=== PATIENT | female | born 1930 | race Caucasian/White ===

== ENCOUNTER 2020-04-08 15:44 | Inpatient (IN) | payer MEDICARE ==
[2020-04-08] MEDS ORDERED: Ventolin HFA Inhaler 60 PUFF INHALER INH PRN (17:56)
[2020-04-08] MEDS ORDERED: Diclofenac 1% 100 GM GEL TP PRN (17:57)
[2020-04-08] MEDS ORDERED: Bisacodyl 10 MG SUPP PR PRN (17:57)
[2020-04-08] MEDS ORDERED: Sodium Chloride 0.65% Nasal 44 ML BOT EA NARE PRN (17:59)
[2020-04-08] MEDS ORDERED: Polyethylene Glycol 3350 17 GM Packet PO PRN (17:59)
[2020-04-08] MEDS ORDERED: Simethicone Chewable 80 MG TAB PO PRN (17:59)
--- NOTE | 2020-04-08 21:12 | RAD ---
PORTABLE CHEST: 04/08/20 HISTORY: CHF. Pneumonia. Comparison 04/07/20. FINDINGS: Cardiomegaly with vascular congestion. There are bilateral interstitial and hazy alveolar opacities w hich could represent edema and superimposed inflammatory infiltrate. IMPRESSION: No significant interval. POS: AGW
[2020-04-09 05:42] LABS: #Basophils 0.1 thou/uL (0.0-0.2); #Eosinphils 0.6 thou/uL (0.0-0.7); #Lymphocytes 1.5 thou/uL (1.20-3.40); #Monocytes 0.6 thou/uL (0.11-0.59); #Neutrophils 5.3 thou/uL (1.40-6.50); %Basophils 0.8 % (0.0-1.0); %Lymphocytes 18.5 % (21.0-51.0); %Monocytes 7.2 % (0.0-10.0); %Neutrophils 66.6 % (42.0-75.0); Hemoglobin 9.6 g/dL (12.0-16.0); Mean Corpuscular HGB CONC 31.1 g/dL (32.0-36.0); Mean Corpuscular Hemoglobin 29.5 pg (27.0-31.0); Mean Corpuscular Volume 94.7 fL (78.0-98.0); Mean Platelet Volume 6.9 fL (7.4-10.4); Platelet Count 231 thou/uL (130-400); RBC Distribution Width 16.2 % (11.5-14.5); Red Blood Cell (RBC) Count 3.27 mill/uL (4.20-5.40)
[2020-04-09 05:59] LABS: ALT (SGPT) 21 U/L (8-55); AST (SGOT) 23 U/L (5-34); Albumin 3.1 g/dL (3.4-4.8); Alkaline Phosphatase 67 U/L (40-110); Anion Gap 14 mmol/L (10-20); BUN (Urea Nitrogen) 43 mg/dL (9.8-20.1); Calc. Creatinine Clearance 74 mL/min (70-130); Calcium 8.1 mg/dL (7.8-10.44); Carbon Dioxide 28 mmol/L (23-31); Chloride 105 mmol/L (98-107); Globulin 2.4 g/dL (2.4-3.5); Glucose 95 mg/dL (83-110); Potassium 4.8 mmol/L (3.5-5.1); Protein, Total 5.5 g/dL (5.8-8.1); Sodium 142 mmol/L (136-145)
[2020-04-09] MEDS: Potassium Chloride 10 MEQ TAB PO SCH (09:09)
[2020-04-09] MEDS: Fish Oil 1,000 MG CAP PO SCH (09:10)
[2020-04-09] MEDS: Azithromycin 250 MG TAB PO SCH (09:10)
[2020-04-09] MEDS: Calcium Carbonate 500 MG TAB PO SCH (09:10)
[2020-04-09] MEDS: Cholecalciferol 1,000 UNITS (25 MCG) TAB PO SCH (09:10)
[2020-04-09] MEDS: predniSONE 5 MG TAB PO SCH (09:10)
[2020-04-09] MEDS: Magnesium Oxide 400 MG TAB PO SCH (09:10)
[2020-04-09] MEDS: Amlodipine 5 MG TAB PO SCH (09:10)
[2020-04-09] MEDS: Lactinex Tablet PO SCH (09:11)
[2020-04-09] MEDS: Rivaroxaban 10 MG TAB PO SCH (18:09)
--- NOTE | 2020-04-10 06:32 | HP ---
HISTORY OF PRESENT ILLNESS: The patient is a very pleasant 89-year-old white female, who has been at [facility] for the past several weeks because of inability to maintain ADLs associated with lymphedema, arthritis, atrial fibrillation, and cellulitis of her legs and buttocks. She improved with PT/OT, and had lymphedema pump placed, but then developed increased pulmonary infiltrates and hypoxemia, felt initially to be due to pneumonia, treated with antibiotics, but then felt to possibly be exacerbation of diastolic heart failure secondary to lymphedema pumps. She did develop a reaction to furosemide, which she has taken in the past with no reaction, but she does have a history of severe allergy to sulfa. This was discontinued and she was treated with IV steroids with resolution of the rash, however, she continued to have infiltrates and was diuresed with ethacrynic acid, another loop diuretic, not related to sulfa drugs, and began to improve her oxygenation, however, she still remain with infiltrates, and therefore, was started on treatment with oral antibiotics for possible underlying pneumonia also. She was unable, however, to be weaned off her oxygen, and was therefore, transferred to the [facility] to continue PT/OT, continue gentle diuresis on oral antibiotics, and wean off her oxygen. PAST MEDICAL HISTORY: Remarkable also for hypertension, which has been well controlled, paroxysmal atrial fibrillation as mentioned above, diastolic heart failure, severe osteoarthritis, chronic asymptomatic , and the severe lymphedema. PAST SURGICAL HISTORY: Positive for hip replacement, cholecystectomy, appendectomy. MEDICATIONS: On transfer included: 1. Azithromycin 500 mg daily for 2 days. 2. Levaquin 750 mg every 48 hours. 3. Lisinopril 40 mg daily. 4. Potassium citrate 10 mEq daily. 5. Rivaroxaban 20 mg daily. 6. Lactobacillus one tablet twice daily. 7. Felodipine 10 mg daily. 8. Ethacrynic acid 50 mg daily as needed. SOCIAL HISTORY: She was living alone, maintaining ADLs. She was a nonsmoker and nondrinker. REVIEW OF SYSTEMS: HEENT: She denies any headaches, dizziness, change in vision, hearing, hoarseness, or dysphagia. PULMONARY: She denies any cough, sputum production, previous history of pneumonia, chest pain. CARDIOVASCULAR: She does have dyspnea on exertion, but improving over the last several days. She has no chest pain at rest, although this has present in the past. She has stable 1 to 2 pillow orthopnea. She does have chronic lymphedema, which was treated with lymphedema pumps, which has been discontinued now and only treated with Lewis wraps. GASTROINTESTINAL: She denies nausea, vomiting, diarrhea, constipation, or abdominal pain. GENITOURINARY: Denies dysuria, hematuria, or nocturia. MUSCULOSKELETAL: She has pain in both legs and knees, but is improving with therapy. She has chronic massive lymphedema with no erythema or warmth at this time. NEUROLOGIC: She denies localized numbness or tingling in arms or extremities. PHYSICAL EXAMINATION: VITAL SIGNS: Her blood pressure today is 127/60, O2 saturation is 93% on 3 L, respirations 18, pulse 58, afebrile. HEENT: Pupils are equal, round, and reactive to light and accommodation. Sclerae anicteric. Conjunctivae pale. There is a fading erythematous rash on her face. NECK: Supple. There are no nodes or masses. JVP is not elevated. LUNGS: Revealing decreased breath sounds in the bases. CARDIAC: Shows regular rhythm. No gallops or murmurs. ABDOMEN: Soft and nontender. Fading rash. SKIN AND EXTREMITIES: Shows massive lymphedema with no erythema or warmth. Minimal tenderness. There is a fading diffuse rash. NEUROLOGICAL: Shows no focal findings. LABORATORY DATA: Laboratories not available as of yet. IMAGING DATA: Chest x-ray shows improving but persistent bilateral infiltrates and interstitial edema. ASSESSMENT: 1. Chronic lymphedema and diastolic heart failure with recent exacerbation, slowly improving with ethacrynic acid. 2. Severe allergic reaction to furosemide, resolving with oral steroids. 3. Severe deconditioning and osteoarthritis, improving with PT/OT. 4. Paroxysmal atrial fibrillation with rate control and anticoagulation. 5. Hypertension, controlled to goal. PLAN: 1. Continue PT, OT. 2. Finish course of Levaquin, azithromycin for possible superimposed bacterial pneumonia. 3. Restart ethacrynic acid 50 mg daily as needed for edema and monitor pulmonary congestion, oxygen requirements. 4. Continue prednisone for the next several days to completely eradicate the allergic reaction. 5. Continue to monitor vital signs with therapy. Job ID: [id number]
--- NOTE | 2020-04-10 06:36 | PRG ---
DATE OF SERVICE: 04/09/2020 SUBJECTIVE: The patient feels better, sitting up in the chair. No dyspnea at rest. Has been working with therapy, walked out in the [place]. She is still requiring some oxygen. She is having no cough or wheezing. OBJECTIVE: VITAL SIGNS: Show temperature is 96.3, pulse 56, respirations 20, O2 sat is 97% on 3 L, and blood pressure is 145/64. LUNGS: Show decreased breath sounds in the bases with a few diffuse crackles. CARDIAC: Examination shows slow regular rhythm. ABDOMEN: Obese, nontender. SKIN/EXTREMITIES: Show faded rash and significant lymphedema with no erythema and significant arthritis, crepitus of the knee. LABORATORY DATA: Show sodium 142, potassium 4.8, chloride 105, bicarb 28, creatinine 1.02, glucose 95, calcium 8.1, total bilirubin . White count 8000, hematocrit 30. ASSESSMENT: 1. Persistent infiltrates and hypoxemia in the lungs, possibly due to atypical diastolic heart failure with pulmonary congestion versus pneumonia. She is finishing a course of Levaquin and azithromycin, has no evidence of fever, procalcitonin elevation. 2. Probable diastolic heart failure with decompensation with elevated BNP and x-ray findings consistent with atypical pulmonary edema responding to oral ethacrynic acid. We will continue this dose and monitor oxygen saturation and pulmonary findings and BNP. 3. Severe osteoarthritis, but not limiting therapy. She is working with therapy. 4. Lymphedema, stable with no evidence of cellulitis. 5. Paroxysmal atrial fibrillation with rate control and anticoagulation with EKG showing junctional rhythm at this time. We will repeat tomorrow. Monitor closely. Job ID: [id number]
[2020-04-10] MEDS: Cholecalciferol 1,000 UNITS (25 MCG) TAB PO SCH (09:00)
[2020-04-10] MEDS: Azithromycin 250 MG TAB PO SCH (09:00)
[2020-04-10] MEDS: Potassium Chloride 10 MEQ TAB PO SCH (09:01)
[2020-04-10] MEDS: Fish Oil 1,000 MG CAP PO SCH (09:01)
[2020-04-10] MEDS: Amlodipine 5 MG TAB PO SCH (09:01)
[2020-04-10] MEDS: Calcium Carbonate 500 MG TAB PO SCH (09:01)
[2020-04-10] MEDS: predniSONE 5 MG TAB PO SCH (09:01)
[2020-04-10] MEDS: Magnesium Oxide 400 MG TAB PO SCH (09:01)
[2020-04-10] MEDS: Lactinex Tablet PO SCH (09:02)
[2020-04-10] MEDS: Rivaroxaban 10 MG TAB PO SCH (16:17)
[2020-04-11 05:50] LABS: Anion Gap 16 mmol/L (10-20); BUN (Urea Nitrogen) 52 mg/dL (9.8-20.1); Calc. Creatinine Clearance 60 mL/min (70-130); Calcium 8.2 mg/dL (7.8-10.44); Carbon Dioxide 26 mmol/L (23-31); Chloride 104 mmol/L (98-107); Glucose 89 mg/dL (83-110); Potassium 4.5 mmol/L (3.5-5.1); Sodium 141 mmol/L (136-145)
[2020-04-11] MEDS: predniSONE 5 MG TAB PO SCH (09:12)
[2020-04-11] MEDS: Magnesium Oxide 400 MG TAB PO SCH (09:12)
[2020-04-11] MEDS: Cholecalciferol 1,000 UNITS (25 MCG) TAB PO SCH (09:12)
[2020-04-11] MEDS: Azithromycin 250 MG TAB PO SCH (09:12)
[2020-04-11] MEDS: Amlodipine 5 MG TAB PO SCH ×2 (09:12→09:16)
[2020-04-11] MEDS: Calcium Carbonate 500 MG TAB PO SCH (09:12)
[2020-04-11] MEDS: Fish Oil 1,000 MG CAP PO SCH (09:12)
[2020-04-11] MEDS: Potassium Chloride 10 MEQ TAB PO SCH (09:12)
[2020-04-11] MEDS: Lactinex Tablet PO SCH (09:14)
--- NOTE | 2020-04-11 11:28 | PRG ---
DATE OF SERVICE: 04/10/2020 SUBJECTIVE: The patient is sitting up in the chair, eating supper. She states she has had a good day, worked with therapy today, walked around the nurses station. She is still requiring oxygen. She is having no further rash or itching. She did finally get her diuretic later this afternoon. OBJECTIVE: Shows: VITAL SIGNS: Blood pressure 116/55, temperature is 96, pulse 54, respirations 18, and O2 sats 93% on room air. LUNGS: Show only a few crackles in the bases. CARDIAC: Showed regular rhythm. ABDOMEN: Soft, nontender. SKIN/EXTREMITIES: Showed diffuse lymphedema. Occupational Therapy and Wound Care seen the patient and recommend lymphedema pumps to start next week as they feel wrapping would not benefit her. ASSESSMENT: 1. Chronic lymphedema, stable. 2. Resolved cellulitis. 3. Paroxysmal atrial fibrillation, now with junctional rhythm and we will repeat EKG, but need to be concern for possible tachycardia-bradycardia syndrome. 4. hypoxemia and diffuse infiltrates on chest x-ray with no evidence of ongoing infection, being treated, however, with azithromycin and Levaquin in the next several days. 5. Sulfa and furosemide allergy, resolving, and we will discontinue prednisone. 6. Decompensated congestive heart failure, improved greatly with improving oxygenation and we will check BNP. PLAN: 1. Check BNP in the a.m. 2. Discontinue prednisone in the a.m. 3. Repeat ethacrynic acid today and tomorrow and then monitor. 4. Continue to attempt to wean off oxygen. 5. Repeat EKG tomorrow to monitor for tachycardia-bradycardia syndrome. 6. Discontinue antibiotics tomorrow. Job ID: [id number]
--- NOTE | 2020-04-11 11:32 | PRG ---
DATE OF SERVICE: 04/11/2020 SUBJECTIVE: The patient feels well, walking to the bathroom with no difficulty, shortness of breath, has been working with therapy. She is having no cough, rash, or weakness. OBJECTIVE: VITAL SIGNS: Temperature 96, pulse 61, respirations 18, O2 saturations 96% on 3 L, blood pressure 110/54. LUNGS: Clear with only few crackles. CARDIAC: Regular, slow rhythm. ABDOMEN: Soft and nontender. SKIN/EXTREMITIES: Stable lymphedema with no cellulitis and no rash. ASSESSMENT: 1. Resolved sulfa and furosemide allergy and we will discontinue prednisone. 2. Improving oxygenation and pulmonary infiltrates and we will discontinue ethacrynic acid and repeat chest x-ray tomorrow. 3. Junctional rhythm in a patient with paroxysmal atrial fibrillation. We will discontinue Levaquin and erythromycin and repeat EKG. 4. Hypokalemia resolved with potassium supplementation and we will discontinue potassium as diuretic has been discontinued also. Job ID: [id number]
[2020-04-11] MEDS: Rivaroxaban 10 MG TAB PO SCH (17:40)
[2020-04-12 05:37] LABS: Sodium 139 mmol/L (136-145)
[2020-04-12 05:39] LABS: Anion Gap 15 mmol/L (10-20); BUN (Urea Nitrogen) 58 mg/dL (9.8-20.1); Calc. Creatinine Clearance 52 mL/min (70-130); Carbon Dioxide 24 mmol/L (23-31); Chloride 105 mmol/L (98-107); Glucose 97 mg/dL (83-110); Potassium 4.6 mmol/L (3.5-5.1)
[2020-04-12] MEDS: Lactinex Tablet PO SCH (09:06)
[2020-04-12] MEDS: Magnesium Oxide 400 MG TAB PO SCH (09:07)
[2020-04-12] MEDS: Amlodipine 5 MG TAB PO SCH (09:07)
[2020-04-12] MEDS: Fish Oil 1,000 MG CAP PO SCH (09:07)
[2020-04-12] MEDS: Cholecalciferol 1,000 UNITS (25 MCG) TAB PO SCH (09:07)
[2020-04-12] MEDS: Calcium Carbonate 500 MG TAB PO SCH (09:08)
--- NOTE | 2020-04-12 10:15 | RAD ---
EXAM: Chest one view: HISTORY: Congestive heart failure COMPARISON: 04/08/2020 FINDINGS: Heart size: Cardiomegaly Lungs: Fairly extensive bilateral interstitial and groundglass opacity changes, overall stable consis tent with clinical concern for congestive heart failure with minimal edema. No evidence for confluent lobar pneumonia, significant pleural effusion, acute edema, or pneumothorax , or other significant acute process. IMPRESSION: Cardiomegaly with evidence for bilateral congestion and minimal edema, stable
[2020-04-12] MEDS: Rivaroxaban 10 MG TAB PO SCH (17:35)
[2020-04-13] MEDS: Acetaminophen 500 MG TAB PO PRN ×2 (02:19→21:34)
--- NOTE | 2020-04-13 07:12 | PRG ---
DATE OF SERVICE: 04/12/2020 SUBJECTIVE: The patient feels well. No complaints, improving shortness of breath, has rested through the weekend and oxygen requirements have decreased. OBJECTIVE: VITAL SIGNS: Shows her temperature is 96, pulse is 69, O2 sats 96% on 1 L, blood pressure 107/49. CHEST: Repeat chest x-ray does show cardiomegaly with persistent, but decreased bilateral congestion with minimal edema, but no confluent lobar pneumonia. Lungs show only a few crackles in the bases. CARDIAC: Shows slow regular rhythm. SKIN/EXTREMITIES: Show chronic lymphedema. No erythema. ABDOMEN: soft, nontender. ASSESSMENT: 1. Resolved sulfa and furosemide allergy. 2. Paroxysmal atrial fibrillation, now with aberrant junctional rhythm appears to be improving. 3. Acute diastolic heart failure secondary to lymphedema pumps now resolving, off diuretics. 4. Severe sulfa and furosemide allergy with resolved rash, off steroids. PLAN: 1. Continue to attempt to wean off oxygen. Hopefully, attempt to wean off tomorrow. 2. Continue to monitor cardiac rhythm and repeat EKG tomorrow. 3. Repeat basic metabolic profile tomorrow. Also, however, as creatinine has risen to 1.46, the GFR down to 34, sodium is 139, potassium 4.6, chloride 105, bicarb 24, BNP has returned normal as mentioned above at 59, plan, repeat EKG in the a.m. 4. Repeat BMP in the a.m. 5. Continue off diuretics. 6. Continue to monitor vital signs closely on amlodipine. 7. Continue anticoagulation of atrial fibrillation with Xarelto, rate control because of bradycardia and junctional rhythm. Job ID: [id number]
[2020-04-13] MEDS: Amlodipine 5 MG TAB PO SCH (09:01)
[2020-04-13] MEDS: Calcium Carbonate 500 MG TAB PO SCH (09:02)
[2020-04-13] MEDS: Magnesium Oxide 400 MG TAB PO SCH (09:03)
[2020-04-13] MEDS: Lactinex Tablet PO SCH (09:03)
[2020-04-13] MEDS: Fish Oil 1,000 MG CAP PO SCH (09:03)
[2020-04-13] MEDS: Cholecalciferol 1,000 UNITS (25 MCG) TAB PO SCH (09:03)
[2020-04-13 10:35] LABS: Anion Gap 15 mmol/L (10-20); BUN (Urea Nitrogen) 48 mg/dL (9.8-20.1); Calc. Creatinine Clearance 56 mL/min (70-130); Calcium 8.6 mg/dL (7.8-10.44); Carbon Dioxide 25 mmol/L (23-31); Chloride 103 mmol/L (98-107); Glucose 103 mg/dL (83-110); Potassium 4.4 mmol/L (3.5-5.1); Sodium 139 mmol/L (136-145)
[2020-04-13] MEDS: Rivaroxaban 10 MG TAB PO SCH (17:35)
[2020-04-14] MEDS: Fish Oil 1,000 MG CAP PO SCH (08:45)
[2020-04-14] MEDS: Amlodipine 5 MG TAB PO SCH (08:45)
[2020-04-14] MEDS: Calcium Carbonate 500 MG TAB PO SCH (08:45)
[2020-04-14] MEDS: Magnesium Oxide 400 MG TAB PO SCH (08:45)
[2020-04-14] MEDS: Lactinex Tablet PO SCH (08:46)
[2020-04-14] MEDS: Cholecalciferol 1,000 UNITS (25 MCG) TAB PO SCH (08:46)
[2020-04-14] MEDS: Rivaroxaban 10 MG TAB PO SCH (17:11)
[2020-04-14] MEDS: Acetaminophen 500 MG TAB PO PRN (20:53)
[2020-04-15 05:28] LABS: Hemoglobin 8.9 g/dL (12.0-16.0); Platelet Count 194 thou/uL (130-400)
[2020-04-15] MEDS: Fish Oil 1,000 MG CAP PO SCH (09:04)
[2020-04-15] MEDS: Calcium Carbonate 500 MG TAB PO SCH (09:04)
[2020-04-15] MEDS: Cholecalciferol 1,000 UNITS (25 MCG) TAB PO SCH (09:05)
[2020-04-15] MEDS: Magnesium Oxide 400 MG TAB PO SCH (09:05)
[2020-04-15] MEDS: Lactinex Tablet PO SCH (09:06)
[2020-04-15] MEDS: Amlodipine 5 MG TAB PO SCH (13:15)
[2020-04-15] MEDS: Rivaroxaban 10 MG TAB PO SCH (18:18)
[2020-04-16] MEDS: Calcium Carbonate 500 MG TAB PO SCH (08:39)
[2020-04-16] MEDS: Amlodipine 5 MG TAB PO SCH (08:39)
[2020-04-16] MEDS: Cholecalciferol 1,000 UNITS (25 MCG) TAB PO SCH (08:40)
[2020-04-16] MEDS: Fish Oil 1,000 MG CAP PO SCH (08:43)
[2020-04-16] MEDS: Lactinex Tablet PO SCH (08:43)
[2020-04-16] MEDS: Magnesium Oxide 400 MG TAB PO SCH (08:43)
--- NOTE | 2020-04-16 11:08 | PRG ---
DATE OF SERVICE: 04/16/2020 SUBJECTIVE: The patient is lying in bed, resting, in no respiratory distress, has been sitting in the chair during the day. No difficulty. She has been maintained on 1 to 2 L of oxygen, and we will attempt to wean down later today. OBJECTIVE: LUNGS: Showed a few crackles at the bases. CARDIAC EXAMINATION: Regular rhythm. ABDOMEN: Obese, nontender. SKIN/EXTREMITIES: Show chronic lymphedema, brawny with no particular erythema or increased tenderness. DIAGNOSTIC STUDIES: Chest x-ray done yesterday showed persistent cardiomegaly with bilateral congestion, minimal edema. LABORATORY DATA: Sodium was 139, potassium 4.6, chloride 105, bicarb 24, BUN is 58, creatinine 1.46, glucose 97. ASSESSMENT: 1. Lymphedema, chronic. 2. Significant exacerbation of congestive heart failure, secondary to lymphedema pumps, now responding on low-dose furosemide. 3. Severe sulfa and furosemide allergy, resolved. 4. Paroxysmal atrial fibrillation stable with rate control and anticoagulation. 5. Acute on chronic kidney failure, appears to be improving off diuretics. PLAN: Continue off diuretics. Continue off lymphedema pumps. Attempt to wean off oxygen today. Continue anticoagulation with Xarelto, but no rate control because of bradycardia. Job ID: [id number]
--- NOTE | 2020-04-16 11:12 | PRG ---
DATE OF SERVICE: 04/15/2020 SUBJECTIVE: The patient feels well, has been cooperating with therapy she would stay few more days as they will start back on lymphedema pumps every other day to every other leg to see if they can mobilize the fluid slowly without causing a decompensated congestive heart failure. She and her family are agreeable to this. OBJECTIVE: VITAL SIGNS: Temperature 97.8, pulse 57, respirations 20, O2 sats 94% on room air, blood pressure 110/53. LUNGS: Clear. CARDIAC: ABDOMEN: Soft and nontender, but obese. SKIN/EXTREMITIES: Chronic lymphedema. ASSESSMENT: 1. Stable lymphedema. 2. Resolved decompensation of diastolic heart failure. 3. Stable atrial fibrillation, rate controlled on anticoagulation. 4. Deconditioning, improving. PLAN: 1. Continue PT, OT. 2. Continue lymphedema pumps every other day. 3. Repeat labs to monitor renal function tomorrow. Job ID: [id number]
--- NOTE | 2020-04-16 11:20 | PRG ---
DATE OF SERVICE: 04/14/2020 SUBJECTIVE: The patient feels well, sitting up in a chair, weaned off oxygen with no difficulty and is ready to work with therapy today and hopefully considering discharge if we can maintain off oxygen, normal saturation with exercise. OBJECTIVE: VITAL SIGNS: Show temperature is 96, pulse 53, respirations 18, O2 saturations 95% on room air, blood pressure is 105/53. LUNGS: Show decreased breath sounds in the bases, but no rales or rhonchi. CARDIAC: Showed regular rhythm. No gallops or murmurs. ABDOMEN: Soft, obese, nontender. SKIN/EXTREMITIES: Show chronic lymphedema with no erythema or warmth. ASSESSMENT: 1. Stable lymphedema. 2. Resolved hypoxemia secondary to congestive heart failure. 3. Deconditioning, improving greatly. 4. Paroxysmal atrial fibrillation with rate control, anticoagulation. 5. New finding of bradycardia. PLAN: 1. Continue PT, OT. 2. Monitor off oxygen with exercise. 3. Continue rate control and anticoagulation of paroxysmal atrial fibrillation. 4. Discuss at physical therapy conference tomorrow about discharge planning. Job ID: [id number]
[2020-04-16] MEDS: diphenhydrAMINE 25 MG CAP PO PRN ×2 (11:51→20:58)
[2020-04-16 13:57] LABS: #Basophils 0.1 thou/uL (0.0-0.2); #Eosinphils 0.5 thou/uL (0.0-0.7); #Lymphocytes 1.3 thou/uL (1.20-3.40); #Monocytes 0.6 thou/uL (0.11-0.59); #Neutrophils 4.7 thou/uL (1.40-6.50); %Eosinophils 7.1 % (0.0-10.0); %Lymphocytes 17.7 % (21.0-51.0); %Monocytes 7.8 % (0.0-10.0); %Neutrophils 66.3 % (42.0-75.0); Hemoglobin 10.9 g/dL (12.0-16.0); Mean Corpuscular HGB CONC 32.4 g/dL (32.0-36.0); Mean Corpuscular Volume 92.6 fL (78.0-98.0); Mean Platelet Volume 7.6 fL (7.4-10.4); Platelet Count 216 thou/uL (130-400); Red Blood Cell (RBC) Count 3.63 mill/uL (4.20-5.40); White Blood Cell (WBC) Count 7.1 thou/uL (4.8-10.8)
[2020-04-16 14:12] LABS: ALT (SGPT) 17 U/L (8-55); AST (SGOT) 19 U/L (5-34); Albumin 3.6 g/dL (3.4-4.8); Alkaline Phosphatase 82 U/L (40-110); Anion Gap 16 mmol/L (10-20); BUN (Urea Nitrogen) 36 mg/dL (9.8-20.1); Bilirubin, Total 1.2 mg/dL (0.2-1.2); Calc. Creatinine Clearance 52 mL/min (70-130); Calcium 9.2 mg/dL (7.8-10.44); Carbon Dioxide 24 mmol/L (23-31); Chloride 104 mmol/L (98-107); Globulin 2.9 g/dL (2.4-3.5); Glucose 113 mg/dL (83-110); Potassium 4.8 mmol/L (3.5-5.1); Protein, Total 6.5 g/dL (5.8-8.1); Sodium 139 mmol/L (136-145)
[2020-04-16] MEDS: Rivaroxaban 10 MG TAB PO SCH (18:28)
[2020-04-16] MEDS ORDERED: predniSONE 20 MG TAB PO SCH (19:00)
--- NOTE | 2020-04-17 06:14 | PRG ---
DATE OF SERVICE: 04/16/2020 SUBJECTIVE: The patient feels well with only complaint of some itchy rash only on her back. She is breathing well, is cooperating with therapy and has tolerated lymphedema pump on one leg today and will try again tomorrow. OBJECTIVE: VITAL SIGNS: Show temperature is 96, pulse 50, respirations 20, O2 saturations 96% on room air, and blood pressure 128/58. LUNGS: Clear. CARDIAC: Shows slow irregular rhythm. ABDOMEN: Soft and nontender. DIAGNOSTIC DATA: EKG shows atrial fibrillation, slow ventricular response. Laboratory shows white count 7100, hematocrit 33, and hemoglobin 10. Sodium 139, potassium 4.8, chloride 104, bicarb 24, BUN 36, and creatinine 1.31. BNP, however, is increased to 423 from 50 earlier in the week. AST 19, ALT 17. ASSESSMENT: 1. Atrial fibrillation with rate control, but no anticoagulation. No symptoms of bradycardia, but may have early signs of tachycardia-bradycardia syndrome. We will monitor closely. 2. Early sign of decompensated congestive heart failure, off diuretic and we will give one dose of ethacrynic acid in the a.m. 3. New rash on the back, appears to be allergic, possibly contact is only on the upper back. We will discontinue all lotion, but we will give 40 mg of prednisone and monitor response and we will continue Benadryl 25 every 4 as needed. PLAN: 1. Continue lymphedema pumps every day on every other leg. 2. Ethacrynic acid 50 mg p.o. morning. 3. Monitor rash on back and discontinue all topical lotions to the back. 4. Continue anticoagulation and monitor rate for bradycardia, any signs of tachycardia-bradycardia syndrome. Job ID: [id number]
[2020-04-17] MEDS: Calcium Carbonate 500 MG TAB PO SCH (09:07)
[2020-04-17] MEDS: Amlodipine 5 MG TAB PO SCH (09:07)
[2020-04-17] MEDS: Cholecalciferol 1,000 UNITS (25 MCG) TAB PO SCH (09:07)
[2020-04-17] MEDS: Fish Oil 1,000 MG CAP PO SCH (09:08)
[2020-04-17] MEDS: Lactinex Tablet PO SCH (09:08)
[2020-04-17] MEDS: Magnesium Oxide 400 MG TAB PO SCH (09:09)
[2020-04-17] MEDS: Rivaroxaban 10 MG TAB PO SCH (17:19)
[2020-04-17] MEDS: diphenhydrAMINE 25 MG CAP PO PRN (20:51)
[2020-04-18] MEDS: Magnesium Oxide 400 MG TAB PO SCH (08:58)
[2020-04-18] MEDS: Fish Oil 1,000 MG CAP PO SCH (08:59)
[2020-04-18] MEDS: Cholecalciferol 1,000 UNITS (25 MCG) TAB PO SCH (08:59)
[2020-04-18] MEDS: Calcium Carbonate 500 MG TAB PO SCH (08:59)
[2020-04-18] MEDS: Lactinex Tablet PO SCH (09:02)
[2020-04-18] MEDS: Amlodipine 5 MG TAB PO SCH (10:00)
[2020-04-18] MEDS: Rivaroxaban 10 MG TAB PO SCH (17:19)
[2020-04-18] MEDS: Acetaminophen 500 MG TAB PO PRN (17:22)
[2020-04-18] MEDS: diphenhydrAMINE 25 MG CAP PO PRN (21:19)
[2020-04-19] MEDS: Amlodipine 5 MG TAB PO SCH (09:21)
[2020-04-19] MEDS: Cholecalciferol 1,000 UNITS (25 MCG) TAB PO SCH (09:21)
[2020-04-19] MEDS: Fish Oil 1,000 MG CAP PO SCH (09:22)
[2020-04-19] MEDS: Calcium Carbonate 500 MG TAB PO SCH (09:22)
[2020-04-19] MEDS: Magnesium Oxide 400 MG TAB PO SCH (09:22)
[2020-04-19] MEDS: Lactinex Tablet PO SCH (09:23)
[2020-04-19] MEDS: Acetaminophen 500 MG TAB PO PRN (17:18)
[2020-04-19] MEDS: Rivaroxaban 10 MG TAB PO SCH (17:18)
[2020-04-19] MEDS: diphenhydrAMINE 25 MG CAP PO PRN (20:58)
[2020-04-20] MEDS: Fish Oil 1,000 MG CAP PO SCH (08:36)
[2020-04-20] MEDS: Magnesium Oxide 400 MG TAB PO SCH (08:36)
[2020-04-20] MEDS: Amlodipine 5 MG TAB PO SCH (08:36)
[2020-04-20] MEDS: Calcium Carbonate 500 MG TAB PO SCH (08:36)
[2020-04-20] MEDS: Lactinex Tablet PO SCH (08:37)
[2020-04-20] MEDS: Cholecalciferol 1,000 UNITS (25 MCG) TAB PO SCH (08:37)
--- NOTE | 2020-04-20 10:04 | PRG ---
DATE OF SERVICE: 04/20/2020 SUBJECTIVE: This is a well-appearing 89-year-old female, here for continued PT and OT services. Doing well with therapy. No concerns today. OBJECTIVE: VITAL SIGNS: Temperature 98.3, pulse 71, blood pressure 121/59, respirations 18, O2 saturations 91% to 96% on room air. ASSESSMENT: 1. Atrial fibrillation with rate control. 2. Early signs of decompensated congestive heart failure. 3. Stable rash. PLAN: 1. Continue lymphedema pumps every day on every other leg. 2. Monitor rash in the back. Discontinue all topical lotions. 3. Continue anticoagulation. Monitor for bradycardia. Job ID: [id number]
[2020-04-20] MEDS: Loperamide HCl 2 MG CAP PO PRN ×3 (14:53→21:31)
[2020-04-20] MEDS: Rivaroxaban 10 MG TAB PO SCH (17:35)
[2020-04-21] MEDS: Amlodipine 5 MG TAB PO SCH (09:06)
[2020-04-21] MEDS: Magnesium Oxide 400 MG TAB PO SCH (09:07)
[2020-04-21] MEDS: Lactinex Tablet PO SCH (09:07)
[2020-04-21] MEDS: Fish Oil 1,000 MG CAP PO SCH (09:07)
[2020-04-21] MEDS: Calcium Carbonate 500 MG TAB PO SCH (09:07)
[2020-04-21] MEDS: Cholecalciferol 1,000 UNITS (25 MCG) TAB PO SCH (09:07)
[2020-04-21] MEDS: Loperamide HCl 2 MG CAP PO PRN ×2 (16:37→22:51)
[2020-04-21] MEDS: Rivaroxaban 10 MG TAB PO SCH (17:19)
[2020-04-21] MEDS: Ondansetron ODT 4 MG TAB PO PRN (18:21)
[2020-04-21 19:57] LABS: ALT (SGPT) 15 U/L (8-55); AST (SGOT) 18 U/L (5-34); Alkaline Phosphatase 94 U/L (40-110); Anion Gap 18 mmol/L (10-20); BUN (Urea Nitrogen) 30 mg/dL (9.8-20.1); Bilirubin, Total 1.4 mg/dL (0.2-1.2); Calc. Creatinine Clearance 56 mL/min (70-130); Calcium 9.1 mg/dL (7.8-10.44); Carbon Dioxide 25 mmol/L (23-31); Chloride 98 mmol/L (98-107); Globulin 3.2 g/dL (2.4-3.5); Glucose 109 mg/dL (83-110); Potassium 4.5 mmol/L (3.5-5.1); Protein, Total 7.2 g/dL (5.8-8.1); Sodium 136 mmol/L (136-145)
[2020-04-21] MEDS: Acetaminophen 500 MG TAB PO PRN (21:21)
[2020-04-22 06:03] LABS: Hemoglobin 9.6 g/dL (12.0-16.0); Platelet Count 93 thou/uL (130-400)
--- NOTE | 2020-04-22 07:13 | PRG ---
DATE OF SERVICE: 04/17/2020 SUBJECTIVE: The patient is an 89-year-old white female with a history of lymphedema, recent cellulitis, deconditioning, and subsequent exacerbation of congestive heart failure associated with lymphedema pumps with superimposed concurrent sulfa allergic reaction. She is now feeling well. No dyspnea at rest, is cooperating with therapy and has restarted back on her pumps only on one leg daily and is monitoring her cardiac function. OBJECTIVE: VITAL SIGNS: Today show temperature 96.2, pulse 63, respirations 18, O2 sats 94% on room air, blood pressure 118/58. LUNGS: Clear. CARDIAC: Shows an irregular regular rhythm. ABDOMEN: Soft and nontender. SKIN: Extremities show massive lymphedema with no tension or tenderness. LABORATORY DATA: Most recent laboratory showed a white count 7100, hematocrit 33, hemoglobin 10, sodium 139, potassium 4.8, chloride 104, bicarb 24, BUN 36, creatinine 1.31, glucose 113, BNP 423, which is increased from last week when she was taken off her ethacrynic acid. ASSESSMENT: 1. Deconditioning improving. 2. Lymphedema, tolerating pumps on one leg daily. 3. Recent exacerbation of congestive heart failure secondary to allergic reaction to furosemide but now responding to ethacrynic acid with possible complication of lymphedema redistribution. 4. Hypertension, controlled to goal. 5. Atrial fibrillation with rate control, anticoagulation. PLAN: 1. Continue PT, OT. 2. Continue lymphedema pumps one leg daily and monitor for exacerbation of CHF. 3. Continue ethacrynic acid 50 mg daily. Monitor renal function closely. 4. Continue anticoagulation of atrial fib, but rate control not required because of current bradycardia. Job ID: [id number]
--- NOTE | 2020-04-22 07:20 | PRG ---
DATE OF SERVICE: 04/21/2020 SUBJECTIVE: The patient has had problems with recurrent nausea, vomiting, and diarrhea over the last 24 hours. She had no fever, chills, or cough. OBJECTIVE: VITAL SIGNS: Temperature is 96.0, pulse 90, respirations 20, O2 sats 96% on room air, blood pressure 117/56. LUNGS: Clear. CARDIAC: Regular rhythm. SKIN: Extremities show persistent lymphedema and erythema, warmth. LABORATORY DATA: Shows sodium 136, potassium 4.5, chloride 98, bicarb 25, BUN is down to 30, creatinine down to 1.19, GFR is up to 43. BNP is down to 324. White count 7100, hematocrit 33, hemoglobin 10.9. ASSESSMENT: 1. Gastroenteritis most likely viral. We will treat if symptomatic with Imodium and Zofran. 2. Improving compensated congestive heart failure. We will continue ethacrynic acid. 3. Improving deconditioning, we will hopefully tolerate therapy tomorrow and we will discuss at the therapy conference discharge planning. Job ID: [id number]
[2020-04-22] MEDS: Amlodipine 5 MG TAB PO SCH (08:49)
[2020-04-22] MEDS: Calcium Carbonate 500 MG TAB PO SCH (08:50)
[2020-04-22] MEDS: Cholecalciferol 1,000 UNITS (25 MCG) TAB PO SCH (08:50)
[2020-04-22] MEDS: Fish Oil 1,000 MG CAP PO SCH (08:50)
[2020-04-22] MEDS: Lactinex Tablet PO SCH (08:51)
[2020-04-22] MEDS: Magnesium Oxide 400 MG TAB PO SCH (08:51)
--- NOTE | 2020-04-22 10:38 | PRG ---
DATE OF SERVICE: 04/18/2020 SUBJECTIVE: The patient feels well, tolerating lymphedema pumps. No shortness of breath or chest pain at rest. Is walking with therapy and tolerating well and is hopeful for discharge next week. OBJECTIVE: VITAL SIGNS: Shows temperature is 96.4, pulse 61, respirations 20, O2 saturations 93% on room air, and blood pressure is 110/54. LUNGS: Clear. CARDIAC: Shows slow, irregular rhythm. ABDOMEN: Soft and nontender. SKIN/EXTREMITIES: Show lymphedema, but with decreased tension. No erythema. ASSESSMENT: 1. Stabilizing congestive heart failure, on ethacrynic acid. Tolerating lymphedema pumps. 2. Resolved cellulitis. 3. Stable atrial fibrillation with anticoagulation, but chronic bradycardia. No symptoms. 4. Improving deconditioning. PLAN: 1. Continue PT, OT. 2. Continue diuretic. 3. Continue lymphedema pumps one leg daily. Job ID: [id number]
[2020-04-22] MEDS: Loperamide HCl 2 MG CAP PO PRN ×2 (15:26→20:37)
[2020-04-22] MEDS: Ondansetron ODT 4 MG TAB PO PRN (15:26)
[2020-04-22] MEDS: Rivaroxaban 10 MG TAB PO SCH (17:21)
--- NOTE | 2020-04-23 07:40 | PRG ---
DATE OF SERVICE: 04/22/2020 SUBJECTIVE: The patient feels better today, but still having some concerns with nausea and diarrhea and is worried that the lymphedema pump causes that she was feeling much better this morning until a pump was placed this afternoon. She is having no increased shortness of breath or chest pain, fever, or chills. OBJECTIVE: VITAL SIGNS: Show her temperature is 98.2, pulse 83, respirations 20, O2 saturations 95% on room air, and blood pressure is 124/58. LUNGS: Clear. CARDIAC: Shows irregular rhythm. ABDOMEN: Soft, nontender. SKIN/EXTREMITIES: Showed lymphedema decreasing. No evidence of erythema. LABORATORY DATA: Hemoglobin 9.6, hematocrit 30. ASSESSMENT: 1. Recurrent nausea, diarrhea, felt to be due to viral gastroenteritis, improving, but the patient concerned about lymphedema pump exacerbating. Although I doubt this, we will hold pump tomorrow and monitor nausea and diarrhea. 2. Hypertension, controlled to goal. 3. Atrial fibrillation with anticoagulation, but no rate control secondary to chronic bradycardia, now appeared to be improved. 4. Exacerbation of congestive heart failure, resolved on ethacrynic acid. 5. Sulfa and furosemide allergy, resolved. PLAN: 1. Continue PT, OT and plan for discharge on Tuesday. 2. Hold her lymphedema pumps tomorrow. 3. Continue ethacrynic acid as creatinine is still improving to 1.04, and GFR increasing to 50 with diuresis. 4. Continue anticoagulation, but no rate control, but monitor pulses. It does appear to be increasing off any rate control. 5. Continue to monitor nausea, vomiting, and diarrhea, appears to be resolving and treat symptomatically. Job ID: [id number]
[2020-04-23] MEDS: Cholecalciferol 1,000 UNITS (25 MCG) TAB PO SCH (08:05)
[2020-04-23] MEDS: Calcium Carbonate 500 MG TAB PO SCH (08:05)
[2020-04-23] MEDS: Fish Oil 1,000 MG CAP PO SCH (08:05)
[2020-04-23] MEDS: Magnesium Oxide 400 MG TAB PO SCH (08:05)
[2020-04-23] MEDS: Amlodipine 5 MG TAB PO SCH (08:05)
[2020-04-23] MEDS: Lactinex Tablet PO SCH (08:07)
[2020-04-23] MEDS: Ondansetron ODT 4 MG TAB PO PRN (12:08)
[2020-04-23] MEDS: Rivaroxaban 10 MG TAB PO SCH (17:02)
[2020-04-23] MEDS: Loperamide HCl 2 MG CAP PO PRN (21:19)
--- NOTE | 2020-04-24 06:29 | PRG ---
DATE OF SERVICE: 04/23/2020 SUBJECTIVE: The patient lying in bed, resting, did not get lymphedema pump today and felt somewhat better. Still having some slight diarrhea. Has been eating better and has been working with therapy and is planning on discharge on Tuesday. OBJECTIVE: VITAL SIGNS: Shows temperature is 97.4, pulse 75, respirations 18, O2 saturations 95% on room air, blood pressure 102/54. EXTREMITIES: Show chronic lymphedema. No erythema or warmth. ABDOMEN: Obese and nontender. LUNGS: Clear. CARDIAC: Shows regular rhythm. LABORATORY DATA: Hemoglobin 9.6, hematocrit 30, platelet count 93,000 which is decreased from previous platelet count of 216,000. ASSESSMENT: 1. Lymphedema, stable, slowly improving with lymphedema pumps but held today and we will monitor. 2. Atrial fibrillation with rate control and anticoagulation. 3. Hypertension, controlled to goal. 4. Allergic reaction to sulfa and furosemide, resolved. 5. Diastolic heart failure, resolved. 6. Recent nausea, vomiting, and diarrhea; felt to be due to gastroenteritis, improving. 7. Anxiety, stable. 8. New-onset of thrombocytopenia, not on any heparin and we will repeat in the a.m. as well as CBC and comprehensive metabolic profile. Job ID: [id number]
[2020-04-24 06:32] LABS: Chloride 100 mmol/L (98-107); Potassium 3.5 mmol/L (3.5-5.1); Sodium 138 mmol/L (136-145)
[2020-04-24 06:42] LABS: Band 5 % (5-11); Eosinophils 22 % (0-10); Hemoglobin 10.2 g/dL (12.0-16.0); Hypochromia SLIGHT = 6-15 cells (100X) (0-5/hpf); Lymphocytes 22 % (21-51); MDiff Complete? YES; Mean Corpuscular HGB CONC 31.3 g/dL (32.0-36.0); Mean Corpuscular Hemoglobin 28.1 pg (27.0-31.0); Mean Platelet Volume 8.5 fL (7.4-10.4); Metamyelocyte 2 % (0-0); Monocytes 4 % (0-10); Neutrophil 45 % (42-75); Nucleated RBC 1 % (0); Ovalocytes SLIGHT = 2-5 cells (100X) (0-1/hpf); Platelet Count 85 thou/uL (130-400); Platelet Morphology Comment Appears Decreased; Polychromasia SLIGHT = 2-3 cells (100X) (0-2/hpf); RBC Distribution Width 15.5 % (11.5-14.5); Red Blood Cell (RBC) Count 3.64 mill/uL (4.20-5.40); White Blood Cell (WBC) Count 6.1 thou/uL (4.8-10.8)
[2020-04-24 07:14] LABS: ALT (SGPT) 11 U/L (8-55); AST (SGOT) 16 U/L (5-34); Albumin 3.2 g/dL (3.4-4.8); Alkaline Phosphatase 75 U/L (40-110); BUN (Urea Nitrogen) 24 mg/dL (9.8-20.1); Bilirubin, Total 0.9 mg/dL (0.2-1.2); Calc. Creatinine Clearance 59 mL/min (70-130); Calcium 8.4 mg/dL (7.8-10.44); Carbon Dioxide 25 mmol/L (23-31); Globulin 2.5 g/dL (2.4-3.5); Glucose 82 mg/dL (83-110); Protein, Total 5.7 g/dL (5.8-8.1)
[2020-04-24 07:26] LABS: Anion Gap 17 mmol/L (10-20)
[2020-04-24] MEDS: Amlodipine 5 MG TAB PO SCH (08:24)
[2020-04-24] MEDS: Fish Oil 1,000 MG CAP PO SCH (08:25)
[2020-04-24] MEDS: Cholecalciferol 1,000 UNITS (25 MCG) TAB PO SCH (08:25)
[2020-04-24] MEDS: Calcium Carbonate 500 MG TAB PO SCH (08:25)
[2020-04-24] MEDS: Magnesium Oxide 400 MG TAB PO SCH (08:25)
[2020-04-24] MEDS: Lactinex Tablet PO SCH (08:26)
[2020-04-24] MEDS: Ondansetron ODT 4 MG TAB PO PRN (12:01)
[2020-04-24] MEDS: Rivaroxaban 10 MG TAB PO SCH (17:59)
[2020-04-24] MEDS: Loperamide HCl 2 MG CAP PO PRN (21:31)
[2020-04-25] MEDS: Lactinex Tablet PO SCH (08:55)
[2020-04-25] MEDS: Cholecalciferol 1,000 UNITS (25 MCG) TAB PO SCH (08:55)
[2020-04-25] MEDS: Fish Oil 1,000 MG CAP PO SCH (08:57)
[2020-04-25] MEDS: Amlodipine 5 MG TAB PO SCH ×3 (08:57→12:15)
[2020-04-25] MEDS: Magnesium Oxide 400 MG TAB PO SCH (08:57)
[2020-04-25] MEDS: Calcium Carbonate 500 MG TAB PO SCH (08:57)
[2020-04-25] MEDS: Ondansetron ODT 4 MG TAB PO PRN ×2 (13:40→19:15)
[2020-04-25] MEDS: Rivaroxaban 10 MG TAB PO SCH (19:13)
[2020-04-25] MEDS: Loperamide HCl 2 MG CAP PO PRN (21:15)
[2020-04-26] MEDS: Loperamide HCl 2 MG CAP PO PRN (01:20)
[2020-04-26] MEDS: Lactinex Tablet PO SCH (08:22)
[2020-04-26] MEDS: Amlodipine 5 MG TAB PO SCH (08:22)
[2020-04-26] MEDS: Rivaroxaban 10 MG TAB PO SCH (17:24)
[2020-04-26] MEDS: diphenhydrAMINE 25 MG CAP PO PRN (20:35)
[2020-04-27] MEDS: Amlodipine 5 MG TAB PO SCH (08:31)
[2020-04-27] MEDS: Lactinex Tablet PO SCH (08:32)
[2020-04-27] MEDS: Rivaroxaban 10 MG TAB PO SCH (17:20)
[2020-04-28] MEDS: Amlodipine 5 MG TAB PO SCH (08:57)
[2020-04-28] MEDS: Lactinex Tablet PO SCH (08:57)
[2020-04-28] MEDS: Rivaroxaban 10 MG TAB PO SCH (17:30)
[2020-04-29 05:16] LABS: Hemoglobin 10.5 g/dL (12.0-16.0); Platelet Count 184 thou/uL (130-400)
[2020-04-29] MEDS: Amlodipine 5 MG TAB PO SCH (08:57)
[2020-04-29] MEDS: Lactinex Tablet PO SCH (08:57)
--- NOTE | 2020-04-29 09:53 | PRG ---
DATE OF SERVICE: 04/24/2020 SUBJECTIVE: The patient is lying in bed, resting, is not able to do much therapy; however. She is complaining of recurrent nausea. She has had improved diarrhea and has been eating better. However, she has developed nausea in the morning over the last several days. She has had no shortness of breath or chest pain. OBJECTIVE: VITAL SIGNS: Shows temperature is 96.4, pulse 68, respirations 20, O2 sats 96% on room air, and blood pressure 105/58. LUNGS: Clear. CARDIAC: Shows regular rhythm. ABDOMEN: Soft and nontender. EXTREMITIES: Shows lymphedema, but with markedly decreased swelling. LABORATORY DATA: White count 6100, hematocrit 32, hemoglobin 10. Sodium 138, potassium 3.5, chloride 100, bicarb 25, BUN 24, creatinine 1.13, glucose 82, calcium 8.4, protein 5.7, albumin 3.2, and BNP 314. ASSESSMENT: 1. Recurrent nausea of unknown etiology, possibly due to lymphedema pump as the patient feels this is causing it, but unsure, but we will hold pump because she appears to be stable from a cardiac point of view. 2. Deconditioning, improving greatly, walking in the halls. 3. Diastolic heart failure, controlled to goal, on ethacrynic acid as needed. 4. Atrial fibrillation with rate control and anticoagulation. 5. Hypertension, controlled to goal. 6. Allergic reaction to sulfa and furosemide, resolved. 7. Anxiety, stable. 8. Thrombocytopenia of unknown etiology and we will monitor and follow closely, and is not on any heparin drugs. Job ID: [id number]
--- NOTE | 2020-04-29 09:56 | PRG ---
DATE OF SERVICE: 04/25/2020 SUBJECTIVE: Patient feels slightly better. Still having some nausea, lymphedema pumps discontinued, having no further diarrhea. Having no dyspnea or chest pain. She is working with therapy. OBJECTIVE: VITAL SIGNS: Shows temperature is 96.7, pulse 66, respirations 16, O2 sats 96% on room air, blood pressure is 112/57. LUNGS: Clear. CARDIAC: Shows irregularly irregular rhythm. ABDOMEN: Soft and nontender. SKIN/EXTREMITIES: Show stable lymphedema and no rash. ASSESSMENT: 1. Intermittent nausea, possibly due to diclofenac. We will discontinue. 2. Stable atrial fibrillation with rate control, on anticoagulation. 3. Lymphedema, slowly improving, even off lymphedema pumps. 4. Diastolic heart failure, compensated, stable. 5. Elevated BNP, minimal symptoms. 6. Deconditioning, improved greatly, working with therapy. PLAN: 1. Monitor off diclofenac. 2. Continue PT/OT. 3. Continue off lymphedema pumps, stable diastolic heart failure and stable lymphedema. 4. Continue rate control on anticoagulation of atrial fib. Job ID: [id number]
[2020-04-29 10:15] LABS: Hemoglobin 10.5 g/dL (12.0-16.0); Mean Corpuscular Volume 88.6 fL (78.0-98.0); Red Blood Cell (RBC) Count 3.86 mill/uL (4.20-5.40); White Blood Cell (WBC) Count 5.9 thou/uL (4.8-10.8)
[2020-04-29 10:16] LABS: #Basophils 0.1 thou/uL (0.0-0.2); #Eosinphils 1.4 thou/uL (0.0-0.7); #Lymphocytes 1.4 thou/uL (1.20-3.40); #Monocytes 0.5 thou/uL (0.11-0.59); #Neutrophils 2.5 thou/uL (1.40-6.50); %Eosinophils 24.5 % (0.0-10.0); %Lymphocytes 23.5 % (21.0-51.0); %Monocytes 9.2 % (0.0-10.0); %Neutrophils 41.8 % (42.0-75.0); Manual Diff?? NO; Mean Corpuscular HGB CONC 30.7 g/dL (32.0-36.0); Mean Corpuscular Hemoglobin 27.3 pg (27.0-31.0); Mean Platelet Volume 6.9 fL (7.4-10.4); Platelet Count 184 thou/uL (130-400); RBC Distribution Width 15.8 % (11.5-14.5)
[2020-04-29 10:17] LABS: Calc. Creatinine Clearance 51 mL/min (70-130)
[2020-04-29 10:32] LABS: ALT (SGPT) 14 U/L (8-55); AST (SGOT) 23 U/L (5-34); Albumin 3.1 g/dL (3.4-4.8); Alkaline Phosphatase 102 U/L (40-110); BUN (Urea Nitrogen) 28 mg/dL (9.8-20.1); Bilirubin, Total 0.9 mg/dL (0.2-1.2); Calcium 8.5 mg/dL (7.8-10.44); Carbon Dioxide 27 mmol/L (23-31); Chloride 98 mmol/L (98-107); Globulin 2.5 g/dL (2.4-3.5); Glucose 93 mg/dL (83-110); Potassium 4.3 mmol/L (3.5-5.1); Protein, Total 5.6 g/dL (5.8-8.1); Sodium 137 mmol/L (136-145)
[2020-04-29 10:33] LABS: Anion Gap 16 mmol/L (10-20)
[2020-04-29 11:48] VITALS: BMI 34.1
[2020-04-29] MEDS: Acetaminophen 500 MG TAB PO PRN (12:22)
[2020-04-29] MEDS: Rivaroxaban 10 MG TAB PO SCH (17:42)
[2020-04-30] MEDS: Lactinex Tablet PO SCH (08:15)
[2020-04-30] MEDS: Amlodipine 5 MG TAB PO SCH (08:15)
[2020-04-30] MEDS: Rivaroxaban 10 MG TAB PO SCH (17:36)
--- NOTE | 2020-04-30 19:39 | PRG ---
DATE OF SERVICE: 04/26/2020 SUBJECTIVE: The patient is lying in bed, resting, did not have therapy today. She is still complaining of some nausea with no diarrhea. OBJECTIVE: VITAL SIGNS: Temperature is 97.2, pulse 66, respirations 16, O2 sats 97% on room air, blood pressure is 120/56. LUNGS: Clear. CARDIAC: Showed regular rhythm. ABDOMEN: Soft and nontender. SKIN/EXTREMITIES: Show stable lymphedema with no erythema. ASSESSMENT: 1. Resolving lymphedema. 2. Diastolic heart failure, compensated. 3. Cellulitis, resolved. 4. Sulfa allergies, resolved. 5. Recurrent nausea, most likely due to possibly drugs and we will discontinue diclofenac and monitor. Job ID: [id number]
--- NOTE | 2020-04-30 19:43 | PRG ---
DATE OF SERVICE: 04/29/2020 SUBJECTIVE: The patient feels much better. No further nausea. Has been working with therapy, walking in the [place] with a walker and is feeling better about discharge home. OBJECTIVE: Shows sodium is 137, potassium 4.3, chloride is 98, bicarb 27, BUN is 28, creatinine 1.19, glucose 43, calcium 8.5, total bilirubin 0.9, AST 23, ALT 14. BNP improved to 279. Total protein 5.6. ASSESSMENT: 1. Stable diastolic heart failure, slightly improving. 2. Deconditioning, improving daily. 3. Cellulitis, resolved. 4. Lymphedema, stable. 5. Sulfa allergy, resolved. PLAN: Continue PT, OT. Discuss discharge in the next several days if weather allows because of severe inclement weather delaying discharge. Job ID: [id number]
--- NOTE | 2020-04-30 19:44 | PRG ---
DATE OF SERVICE: 04/27/2020 SUBJECTIVE: The patient feels slightly better. Still having some nausea, but is improved. Having no shortness of breath or chest pain. Did not have any therapy today because of the weekend, but is ready for more therapy tomorrow. OBJECTIVE: VITAL SIGNS: Shows temperature is 98.2, pulse 54, respirations 18, O2 saturations 92% on room air, blood pressure 108/55. LUNGS: Clear. CARDIAC: Shows regular rhythm. ABDOMEN: Soft and nontender. EXTREMITIES: Show chronic lymphedema with decrease and no erythema. ASSESSMENT: 1. Resolving nausea, most likely due to diclofenac. 2. Stable diastolic heart failure. 3. Improving deconditioning. 4. Stable lymphedema. PLAN: 1. Continue PT/OT. 2. Continue to monitor for recurrence diastolic heart failure. 3. Discharge planning. Job ID: [id number]
--- NOTE | 2020-04-30 19:55 | PRG ---
DATE OF SERVICE: SUBJECTIVE: The patient feels well, sitting up in the chair. She has had no nausea. Did walk in the [place] today several rounds, did require some rest, but feels she will be ready for discharge in the next several days. OBJECTIVE: VITAL SIGNS: Temperature is 96.3, pulse 58, respirations 18, O2 sats 91% on room air, and blood pressure 103/52. LUNGS: Clear. CARDIAC: Shows regular rhythm. ABDOMEN: Soft and nontender. SKIN/EXTREMITIES: Show stable lymphedema. ASSESSMENT: 1. Atrial fibrillation with no need for rate control because of chronic bradycardia with anticoagulation. 2. Hypertension, controlled to goal. 3. Diastolic heart failure, compensated. 4. Chronic lymphedema, stable. 5. Sulfa allergy, resolved. 6. Nausea secondary to diclofenac, resolved. PLAN: 1. Start ethacrynic acid every other day. 2. Start lymphedema pumps every day. 3. Continue PT/OT, plan for discharge in the next several days. Job ID: [id number]
[2020-05-01] MEDS: Acetaminophen 500 MG TAB PO PRN (02:40)
[2020-05-01] MEDS: Amlodipine 5 MG TAB PO SCH (08:25)
[2020-05-01] MEDS: Lactinex Tablet PO SCH (08:26)
[2020-05-01] MEDS: Ondansetron ODT 4 MG TAB PO PRN ×2 (10:38→17:42)
--- NOTE | 2020-05-01 11:44 | PRG ---
DATE OF SERVICE: 05/01/2020 SUBJECTIVE: The patient is nauseated again after receiving ethacrynic acid. She denies any shortness of breath, chest pain . OBJECTIVE: VITAL SIGNS: Temperature 98.7, pulse 61, respirations 18, O2 sats 93% on room air, blood pressure is 110/57. LUNGS: Clear. CARDIAC: Shows regular rhythm. ABDOMEN: Soft, nontender. EXTREMITIES: Show stable lymphedema. ASSESSMENT: 1. Recurrent nausea, secondary most likely to ethacrynic sensitivity. 2. Stable lymphedema. 3. Stable diastolic heart failure. 4. Deconditioning, greatly improved. 5. Atrial fibrillation, adequate anticoagulation. PLAN: 1. Discontinue ethacrynic acid. 2. Zofran 4 mg now. 3. Continue PT/OT. 4. Plan for discharge in the next 2 days. Job ID: [id number]
[2020-05-01] MEDS: Rivaroxaban 10 MG TAB PO SCH (17:38)
[2020-05-02] MEDS: Ondansetron ODT 4 MG TAB PO PRN (01:04)
[2020-05-02] MEDS: Amlodipine 5 MG TAB PO SCH (08:49)
[2020-05-02] MEDS: Lactinex Tablet PO SCH (08:50)
[2020-05-02] MEDS: Rivaroxaban 10 MG TAB PO SCH (17:27)
[2020-05-03 08:06] VITALS: BP 112/56; TEMP 96
[2020-05-03] MEDS: Amlodipine 5 MG TAB PO SCH (08:30)
[2020-05-03] MEDS: Lactinex Tablet PO SCH (08:30)
== END 2020-05-03 11:40 | disposition home health service (06) | DRG 291 ==
LOC: NAV ACUTE 15:44
PROVIDERS: ADMIT Internal Medicine; ATTEND Internal Medicine
DX: I13.0 Hypertensive heart and chronic kidney disease with heart failure and stage 1 through stage 4 chronic kidney disease, or unspecified chronic kidney disease (principal); I50.33 Acute on chronic diastolic (congestive) heart failure; N17.9 Acute kidney failure, unspecified; L03.119 Cellulitis of unspecified part of limb; M19.90 Unspecified osteoarthritis, unspecified site; E87.6 Hypokalemia; I89.0 Lymphedema, not elsewhere classified; I48.0 Paroxysmal atrial fibrillation; Z96.649 Presence of unspecified artificial hip joint; N18.9 Chronic kidney disease, unspecified; R09.02 Hypoxemia; A08.4 Viral intestinal infection, unspecified; F41.9 Anxiety disorder, unspecified; D69.6 Thrombocytopenia, unspecified; R00.1 Bradycardia, unspecified; Z90.49 Acquired absence of other specified parts of digestive tract; Z79.899 Other long term (current) drug therapy; Z79.2 Long term (current) use of antibiotics; Z88.2 Allergy status to sulfonamides
CPT/HCPCS: 36415; 71045; 80048; 80053; 82565; 83630; 83880; 85014; 85018; 85025; 85049; 87324; 87427; 87449; J7512; Q0162; Q0163